=== PATIENT | male | born 1960 | race Caucasian/White ===

== ENCOUNTER 2019-06-20 17:11 | Emergency (ER) | payer OTHER ==
[~2019-06-20] VITALS: Ht 177.8 cm; Wt 104.3 kg
[~2019-06-20 17:11] MED LIST: AMOX TR-K CLV1 EAC1 PO; ASPIRIN81 MG PO; ATORVASTATIN CA80 MG PO; BENZONATATE100 MG PO; CIPRO500 MG PO; LISINOPRIL5 MG PO; METOPROLOL SUCC25 MG PO; NORCO 5-325 TA1 EACH PO; PROSTATE HEALT1 EAC1 PO
--- OUTSIDE RECORDS SUMMARY | 2019-06-20 17:16 | XMS ---
PreManage Notification: UZAIR HOOVER Security Residence Hall Director Events No recent Security Events currently on file [facility] There are no care providers on record at this time. Nereida has no Care Guidelines for this patient. González VISIT COUNT (12 MO.) 1 LUZ ELENA Jacobs TOTAL 1 NOTE: Visits indicate total known visits. ED/C VISIT TRACKING (12 MO.) 06/20/2019 17:14 LUZ ELENA Anand OR TYPE: Emergency COMPLAINT: - WRIST PAIN, INJ INPATIENT VISIT TRACKING (12 MO.) No inpatient visits to display in this time frame [email or web address]
[2019-06-20] MEDS ORDERED: PERCOCET 5-3251 EACH PO (18:18)
== END 2019-06-20 18:49 | disposition home or self-care (01) ==
LOC: ED 17:11
DX: S62.114A Nondisplaced fracture of triquetrum [cuneiform] bone, right wrist, initial encounter for closed fracture (principal); W01.198A Fall on same level from slipping, tripping and stumbling with subsequent striking against other object, initial encounter; I10 Essential (primary) hypertension; Z79.899 Other long term (current) drug therapy; Z79.82 Long term (current) use of aspirin
CPT/HCPCS: 73110; 90471; 90714; 99283-25

== ENCOUNTER 2023-05-16 08:34 | Emergency (ER) | payer OTHER ==
[~2023-05-16] VITALS: Ht 177.8 cm; Wt 103.3 kg
[~2023-05-16 08:34] MED LIST changes: +PERCOCET 5-3251 EACH PO
[2023-05-16] MEDS ORDERED: METOPROLOL TART50 MG PO (08:48)
[2023-05-16 08:53] LABS: BASOPHILS 1.7 % (0-2); EOSINOPHILS 2.7 % (0-6); HEMOGLOBIN 16.8 g/dL (12.0-18.0); LYMPHOCYTES 33.5 % (24-44); MCH 30.9 (27-36); MCHC 33.6 g/dl (30-36); MONOCYTES 8.8 % (0-12); NEUTROPHILS 53.3 % (39-80); PLATELET COUNT 180 K/uL (140-440); RBC 5.43 M/ul (4.3-5.7); RDW 13.3 (10.5-15.0)
[2023-05-16 09:16] LABS: ALBUMIN 3.9 g/dL (3.4-5.0); ALBUMIN/GLOBULIN RATIO 1.39 (1.1-2.4); ANION GAP 10.9 (7-21); BILIRUBIN, TOTAL 1.4 ng/dL (0.2-1.0); BUN/CREATININE RATIO 15.38 (6.0-28.6); CALCIUM 8.8 mg/dL (8.5-10.1); CREATININE, SERUM 1.04 mg/dL (0.70-1.30); POTASSIUM 3.9 mmol/L (3.5-5.1); PROTEIN, TOTAL 6.7 g/dL (6.4-8.2)
[2023-05-16 09:31] LABS: INFLUENZA B NAA NEGATIVE (NEGATIVE); RESPIRATORY SYNCYTIAL VIR NAA NEGATIVE (NEGATIVE)
[2023-05-16] MEDS ORDERED: OMEPRAZOLE20 MG PO (13:42)
[2023-05-16 13:58] VITALS: BP 154/103
--- NOTE | 2023-05-16 22:15 | EKG ---
[facility] [address] [facility] [place] [address] Signed Normal sinus rhythm Low voltage QRS Borderline ECG When compared with ECG of 25-MAR-2019 12:31, No significant change was found Confirmed by Cris Wheat MD () on 05/16/2023 10:15:36 PM Electronically Signed By: CRIS WHEAT MD 05/16/23 2215 PATIENT NAME: UZAIR HOOVER SUSU Electrocardiogram DATE OF : 58 PHYSICIAN: CRIS WHEAT MD REPORT #: [id number] REPORT IS CONFIDENTIAL AND NOT TO BE RELEASED WITHOUT AUTHORIZATION
== END 2023-05-16 13:59 | disposition home or self-care (01) ==
LOC: ED 08:34
PROVIDERS: Emergency Medicine
DX: R07.89 Other chest pain (principal); K22.89 Other specified disease of esophagus; I25.10 Atherosclerotic heart disease of native coronary artery without angina pectoris; I25.2 Old myocardial infarction; I10 Essential (primary) hypertension; Z11.52 Encounter for screening for COVID-19; Z79.82 Long term (current) use of aspirin; Z79.899 Other long term (current) drug therapy
CPT/HCPCS: 36415; 71045; 71275; 74174; 80053; 83690; 83735; 83880; 84484; 85025; 87502; 93005; 93010; A9270; C9803; Q9967; U0002

== ENCOUNTER 2023-06-04 15:14 | Day surgery (SDC) | payer OTHER ==
[~2023-06-04] VITALS: Ht 177.8 cm; Wt 104.5 kg
--- NOTE | ~2023-06-04 | OR ---
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 POSTOPERATIVE DIAGNOSES: 1. Normal gastroesophageal junction. No evidence of mass. 2. Hiatal hernia without obvious esophagitis. 3. Proximal gastritis. PROCEDURE: Esophagogastroduodenoscopy with biopsy. ANESTHESIA: Intravenous sedation; fentanyl 100 mcg, Versed 4 mg. INDICATION: This 62-year-old white man is a patient of Dr. Efren Russ was referred by Dr. Russ urgently with a CT scan finding of concentric mass at the GE junction. The patient has complained of dysphagia to both solids and liquids. He has had no hematemesis or weight loss. He was empirically treated with PPI medication, omeprazole. He does not smoke or drink alcohol. He is rather low risk for esophageal neoplasm. Given the findings on the CT scan that was performed through the emergency room on 05/16/2023, prompt upper endoscopy has been recommended. The risk of bleeding, infection, and perforation related upper endoscopy was reviewed with him. He understands and wished to proceed. FINDINGS: There was no mass. Certainly, no kind of malignancy or any sign of esophagitis actually. He did have proximal gastritis. Hiatal hernia was noted as well. CLOtest was negative. There were no other findings of concern other than mild duodenitis. DESCRIPTION OF PROCEDURE: The patient was brought to the endoscopy suite and placed in lateral decubitus position after undergoing topical lidocaine hypopharyngeal anesthesia. He was given intravenous sedation to the point of slurred speech and nystagmus with full cardiopulmonary monitoring. A bite block was placed. PATIENT NAME: UZAIR HOOVER OPERATIVE REPORT DATE OF : 58 REPORT #: [id number] PHYSICIAN: DARYA CHAMBERS MD PCP: EFREN RUSS MD REPORT IS CONFIDENTIAL AND NOT TO BE RELEASED WITHOUT AUTHORIZATION [facility] [address] [place], [place] [address] Draft An Olympus video upper endoscope was passed in the hypopharynx. The vocal cords were briefly evaluated and found to be normal. The scope was advanced throughout the esophagus. There was no finding of stricture, neoplasm or mass of the distal esophagus and certainly no malignancy by any means. There were no varices. There were no signs of stricture. The stomach itself was reasonably normal except in the proximal portion where there was proximal gastritis. The pylorus was normal. The scope was passed through into the duodenum. Biopsies were taken of the duodenum to assess for celiac disease. The scope was withdrawn to the antrum and biopsies taken of the antrum and more proximal stomach for both CUCA and pathologic testing. Retroflexed view confirmed a relatively small hiatal hernia. Scope was straightened, withdrawn and biopsies then taken of the normal-appearing distal esophageal mucosa. Midesophageal biopsies were obtained as well to assess for eosinophilic esophagitis. Further withdrawal showed no other abnormality of concern. The scope was removed. The patient was taken to the recovery room in good condition. CONCLUDING DIAGNOSIS: No evidence of GE junction tumor, mass, or stricture. PLAN: We would recommend continued use of PPI medication on the basis of his proximal gastritis and hiatal hernia despite no endoscopic evidence of esophagitis proper. We will see him back in the office in 4-6 weeks and re-evaluate his symptoms and review his pathology report. MD CHU Salcedo/LEEANN /[id number] cc: Efren Russ MD Copies: EFREN RUSS MD ~ PATIENT NAME: UZAIR HOOVER OPERATIVE REPORT DATE OF : 58 REPORT #: [id number] PHYSICIAN: DARYA CHAMBERS MD PCP: EFREN RUSS MD REPORT IS CONFIDENTIAL AND NOT TO BE RELEASED WITHOUT AUTHORIZATION
[~2023-06-04 15:14] MED LIST changes: +METOPROLOL TART50 MG PO; +OMEPRAZOLE20 MG PO
[2023-06-04 15:28] VITALS: BP 138/76
--- NOTE | 2023-06-04 17:40 | NUR ---
06/04/23 1740 Iona Leonard 1728- PT ARRIVES TO PACU, SEMI AGUILAR LEFT LATERAL POSITION. PT AWAKE BUT DROWSY. REPORTS PAIN 2/10 DISCOMFORT TO ABD, DENIES NAUSEA. LR INFUSING TO RH IV, O2 AT 2L PER NC. ABD SOFT, NON DISTENDED. 1736- SATS 100% ON 2L PER NC, MOVED TO ROOM AIR AT THIS TIME. WILL CONTINUE TO MONITOR. PT HAVING FULL CONVERSATIONS WITH STAFF.
[2023-06-04 17:58] VITALS: BP 121/78
--- NOTE | 2023-06-11 13:40 | PATH ---
[facility] [address] [facility] [place], [place] [address] Signed THIS IS AN ADDENDUM REPORT SPECIMEN(S): A DUODENAL BIOPSY SPECIMEN(S): B PROXIMAL STOMACH BIOPSY SPECIMEN(S): C DISTAL ESOPHAGEAL BIOPSY SPECIMEN(S): D MID ESOPHAGEAL BIOPSY SPECIMEN SOURCE: A. DUODENAL BIOPSY B. PROXIMAL STOMACH BIOPSY C. DISTAL ESOPHAGEAL BIOPSY D. MID ESOPHAGEAL BIOPSY CLINICAL HISTORY: History of dysphagia to food and liquids FINAL PATHOLOGIC DIAGNOSIS: A. Duodenum, biopsy: - Duodenal mucosa with no significant pathologic changes B. Stomach, proximal, biopsy: - Gastric oxyntic mucosa with chronic focally active gastritis - Negative for Helicobacter pylori with HE stains, see comment C. Esophagus, distal, biopsy: - Squamoglandular mucosa with reactive epithelial changes; negative for intestinal metaplasia D. Esophagus, mid, biopsy: - Esophageal squamous mucosa with no significant pathologic changes COMMENT: For part B, an immunohistochemical stain for Helicobacter pylori has been ordered and will be reported in an addendum. [facility] MICROSCOPIC EXAMINATION: Histologic sections of all submitted blocks are examined by light microscopy. These findings, together with the gross examination, support the pathologic diagnosis. GROSS DESCRIPTION: A. The specimen, labeled and designated "Jt duodenal biopsy," is received in formalin and consists of four andrade soft tissue fragments, ranging from PATIENT NAME: UZAIR HOOVER PATHOLOGY DATE OF : 58 REPORT #: [id number] PHYSICIAN: BRAULIO PATHOLOGY PCP: EFREN ALONZO MD REPORT IS CONFIDENTIAL AND NOT TO BE RELEASED WITHOUT AUTHORIZATION [facility] [address] [place], [place] [address] Signed 0.2-0.4 cm. Entirely submitted in (A1). B. The specimen, labeled and designated "[place], proximal stomach biopsy," is received in formalin and consists of three andrade soft tissue fragments, ranging from 0.2-0.4 cm. Entirely submitted in (B1). C. The specimen, labeled and designated "Jt, distal esophageal biopsy," is received in formalin and consists of three andrade soft tissue fragments, ranging from 0.2-0.3 cm. Entirely submitted in (C1). D. The specimen, labeled and designated "Jt, mid esophageal biopsy," is received in formalin and consists of one andrade soft tissue fragment, 0.5 cm. Entirely submitted in (D1). VB (under the direct supervision of a pathologist) The Gross Description was prepared using a voice recognition system. The report was reviewed for accuracy; however, sound-alike word errors, addition and/or deletions may occur. If there is any question about this report, please contact Client Services. ADDITIONAL NOTES: Immunohistochemical and/or in situ hybridization studies if performed in this case included appropriate positive controls that reacted as expected. This test was developed and its performance characteristics determined by [facility] It has not been cleared or approved by the U.S. Food and Drug Administration. The FDA has determined that such clearance or approval is not necessary. This test is used for clinical purposes. It should not be regarded as investigational or for research. [facility] is certified under the Clinical Laboratory Improvement Amendments of 1988 (CLIA) as qualified to perform high complexity clinical laboratory testing. PERFORMING LABORATORY: Technical component was performed by [facility], [address] [place] [id number] (CLIA# [id number]). Professional interpretation was performed by [facility], [address] [place] [address] (CLIA#:[id number]). ADDITIONAL NOTES: Immunohistochemical and/or in situ hybridization studies if performed in this case included appropriate positive controls that reacted as expected. This test was developed and its performance PATIENT NAME: UZAIR HOOVER PATHOLOGY DATE OF : 58 REPORT #: [id number] PHYSICIAN: BRAULIO HOWARD PCP: EFREN ALONZO MD REPORT IS CONFIDENTIAL AND NOT TO BE RELEASED WITHOUT AUTHORIZATION [facility] [address] [place], [place] [address] Signed characteristics determined by [facility] It has not been cleared or approved by the U.S. Food and Drug Administration. The FDA has determined that such clearance or approval is not necessary. This test is used for clinical purposes. It should not be regarded as investigational or for research. [facility] is certified under the Clinical Laboratory Improvement Amendments of 1988 (CLIA) as qualified to perform high complexity clinical laboratory testing. Professional interpretation was performed by [facility], [address] [place] [address] (CLIA#:[id number]). REASON FOR ADDENDUM: To add results of additional testing DIAGNOSIS SUMMARY: For part B, an immunohistochemical stain for Helicobacter pylori is performed and is negative. The above interpretation is unchanged. Diagnostician: Ray Eric MD Pathologist Electronically Signed 06/11/2023 Copies: ~ PATIENT NAME: UZAIR HOOVER PATHOLOGY DATE OF : 58 REPORT #: [id number] PHYSICIAN: BRAULIO HOWARD PCP: EFREN ALONZO MD REPORT IS CONFIDENTIAL AND NOT TO BE RELEASED WITHOUT AUTHORIZATION
== END 2023-06-04 18:05 | disposition home or self-care (01) ==
LOC: OPS 15:14 → DS 15:17 → OPS 18:05
PROVIDERS: ATTEND Surgery
PROC: 0DB68ZX Excision of Stomach, Via Natural or Artificial Opening Endoscopic, Diagnostic (ICD-10-PCS; 2023-06-04)
PROC: 0DB58ZX Excision of Esophagus, Via Natural or Artificial Opening Endoscopic, Diagnostic (ICD-10-PCS; 2023-06-04)
PROC: 0DB98ZX Excision of Duodenum, Via Natural or Artificial Opening Endoscopic, Diagnostic (ICD-10-PCS; principal; 2023-06-04 15:00)
DX: K22.89 Other specified disease of esophagus (principal); R13.19 Other dysphagia; K29.50 Unspecified chronic gastritis without bleeding; K44.9 Diaphragmatic hernia without obstruction or gangrene; K21.9 Gastro-esophageal reflux disease without esophagitis; I10 Essential (primary) hypertension; I25.2 Old myocardial infarction; Z79.82 Long term (current) use of aspirin; Z79.899 Other long term (current) drug therapy
CPT/HCPCS: 99153; G0500; J2250; J3010; J7121